=== PATIENT | male | born 1985 | race Two or more races ===

== ENCOUNTER 2020-08-15 10:31 | Emergency (ER) | payer SELFPAY ==
[~2020-08-15] VITALS: Ht 182.9 cm; Wt 86.8 kg
--- NOTE | 2020-08-15 10:46 | NUR ---
PT AMBULATED WITH TECH TO ROOM WITH A STEADY GAIT.
--- NOTE | 2020-08-15 11:02 | NUR ---
PT SPEAKS LITTLE DANISH: ERMD AT BEDSIDE AND OBTAINED HISTORY. PT PRESENTED TO ED D/T CP STARTING LAST NIGHT. STATES RADIATES TO LEFT ARM. DENIES ANY HX. DENIES TAKING ANY MEDICATION. AT BEDSIDE. CYRACOM IN ROOM IF NEEDED FOR TRANSLATION.
[2020-08-15 11:18] LABS: BASOPHILS % (AUTO) 1 % (0-1); EOSINOPHILS % (AUTO) 2 % (1-7); LYMPHOCYTES % (AUTO) 27 % (22-44); MEAN CORPUSCULAR HEMOGLOBIN 29.2 pg (27.5-34.5); MEAN CORPUSCULAR HGB CONC 34.3 g/dL (33.2-36.2); MEAN PLATELET VOLUME 6.9 fL (7.4-10.4); MONOCYTES % (AUTO) 7 % (2-9); NEUTROPHILS % (AUTO) 64 % (42-75); PLATELET COUNT 316 x10^3/uL (130-400); RED BLOOD COUNT 5.15 x10^6/uL (4.38-5.82); RED CELL DISTRIBUTION WIDTH 13.3 % (9.4-14.8)
[2020-08-15 11:23] LABS: MD NO
[2020-08-15 11:28] LABS: ALBUMIN 3.6 g/dL (3.4-5.0); ANION GAP 5 mmol/L (5-15); CALCIUM 8.5 mg/dL (8.5-10.1); CHLORIDE 111 mmol/L (98-107); CREATININE 0.88 mg/dL (0.7-1.3)
[2020-08-15 11:32] LABS: TROPONIN I < 0.015 ng/mL (0.000-0.045)
--- NOTE | 2020-08-15 12:13 | NUR ---
PT UPDATED ON POC. AWAITING RECHECK BY PROVIDER. VSS. NO NEEDS AT THIS TIME.
--- NOTE | 2020-08-15 12:52 | NUR ---
REPORT TO ARI FOLEY TO ASSUME PRIMARY CARE OF PT.
[2020-08-15 13:33] VITALS: BP 107/69
--- NOTE | 2020-08-15 13:36 | NUR ---
D/C INSTRUCTIONS, MEDS & F/U APPT RV'WD WITH PT USING MAINFRAME PROGRAMMER ANALYST. PT VERBALIZES UNDERSTANDING. RX GIVEN X1. PT AMBULATED OUT OF ED WITHOUT DIFFICULTY.
== END 2020-08-15 13:37 | disposition home or self-care (01) ==
LOC: ED 12:30
DX: R07.89 Other chest pain (principal); M94.0 Chondrocostal junction syndrome [Tietze]; R94.31 Abnormal electrocardiogram [ECG] [EKG]; I10 Essential (primary) hypertension
CPT/HCPCS: 36415; 71045; 80048; 82040; 84484; 85025; 93005; 99285